=== PATIENT | male | born 1945 | race Caucasian/White ===

== ENCOUNTER 2025-05-07 15:32 | Emergency (ER) | payer OTHER ==
[~2025-05-07] VITALS: Ht 175.3 cm; Wt 77.0 kg
[2025-05-07 15:37] VITALS: O2SAT 98
[2025-05-07] MEDS ORDERED: MORPHINE SULFATE 4 MG/ML INJ (FOR IV/IM USE) IV ONE (16:00)
[2025-05-07 16:43] LABS: BASOPHILS % 0.3 % (0.0-2.0); EOSINOPHILS % 0.0 % (0.0-5.0); HEMATOCRIT. 43.4 % (42.0-52.0); HEMOGLOBIN. 14.5 g/dL (14.0-18.0); LYMPHOCYTES % 9.0 % (20.0-50.0); MEAN PLATELET VOLUME 9.3 fl (7.4-10.4); MONOCYTES % 6.8 % (2.0-8.0); NEUTROPHILS % 83.9 % (40.0-76.0); PLATELET 86 x1000/uL (130-400); RED BLOOD CELL COUNT 4.78 mill/uL (4.7-6.1); RED CELL DISTRIBUTION WIDTH 14.4 % (11.6-14.6)
[2025-05-07 17:00] LABS: CREATININE 1.2 mg/dL (0.6-1.3); TROPONIN I HIGH SENSITIVITY 30 ng/L (3.0-53)
[2025-05-07 17:01] LABS: UREA NITROGEN BLOOD 15 mg/dL (9-23)
[2025-05-07 17:02] LABS: ASPARTATE AMINOTRANSFERASE 56 IU/L (<34); BILIRUBIN DIRECT 0.7 mg/dL (<=3.0)
[2025-05-07 17:03] LABS: BILIRUBIN TOTAL 2.0 mg/dL (0.1-1.0); PROTEIN TOTAL 6.6 g/dL (6.0-8.3)
[2025-05-07 19:11] LABS: CLARITY URINE CLEAR (CLEAR); COLOR URINE DARK YELLOW (YELLOW); GLUCOSE URINE NEGATIVE (NEGATIVE); KETONES URINE TRACE (NEGATIVE); LEUKOCYTE ESTERASE URINE NEGATIVE (NEGATIVE); NITRITE URINE NEGATIVE (NEGATIVE); OCCULT BLOOD URINE 1+ (NEGATIVE); PH URINE 6.0 (4.5-8.0); PROTEIN URINE 2+ (NEGATIVE); SPECIFIC GRAVITY URINE 1.023 (1.005-1.030); UROBILINOGEN URINE 1.0 E.U./dL (0.2-1.0)
[2025-05-07 19:11] LABS: TROPONIN I HIGH SENSITIVITY 33 ng/L (3.0-53)
[2025-05-07 19:22] LABS: BACTERIA URINE TRACE; SQUAMOUS EPITHELIAL CELL URINE RARE /lpf (RARE/1+); WBC URINE 0-2 /hpf (0-2)
[2025-05-07] MEDS: PIPERACILLIN/TAZO 3.375G/50ML 50 ML IV STA (19:30)
[2025-05-07] MEDS: MORPHINE SULFATE 4 MG/ML INJ (FOR IV/IM USE) IV SCH (19:31)
[2025-05-07 22:54] VITALS: BP 150/76; PULSE 91; RESP 21; TEMP 37.6; O2SAT 95
== END 2025-05-07 23:52 | disposition admitted as inpatient to this hospital (09) ==
LOC: ER 15:53 → CMPBEDREQ 05-09 08:01
DX: N13.2 Hydronephrosis with renal and ureteral calculous obstruction (principal); K57.92 Diverticulitis of intestine, part unspecified, without perforation or abscess without bleeding; R10.9 Unspecified abdominal pain; E78.00 Pure hypercholesterolemia, unspecified; I10 Essential (primary) hypertension
CPT/HCPCS: 99285; 74176; 96374; 71045; 96361; 80076; 80048; 81003; 83690; 83735; 85025; 84484; 36415; 93005; J2543; J2270